=== PATIENT | female | born 1995 | race Caucasian/White ===

== ENCOUNTER 2018-07-29 17:14 | Emergency (ER) | payer OTHER ==
[~2018-07-29] VITALS: Ht 160 cm; Wt 61.7 kg
== END 2018-07-29 19:27 | disposition home or self-care (01) ==
LOC: ER 17:14
DX: J06.9 Acute upper respiratory infection, unspecified (principal)

== ENCOUNTER 2020-03-26 10:48 | Inpatient (IN) | payer OTHER ==
[~2020-03-26] VITALS: Ht 162.6 cm; Wt 74.4 kg
[2020-03-26] MEDS ORDERED: PRENATAL CAPLE1 EAC1 PO (11:35)
[2020-03-26] MEDS ORDERED: ZOFRAN8 MG PO (11:46)
== END 2020-03-28 10:08 | disposition home or self-care (01) | DRG 833 ==
LOC: LDR 10:48 → OB/GYN 03-27 08:49
PROVIDERS: ADMIT Obstetrics & Gynecology; ATTEND Obstetrics & Gynecology
PROC: 4A1HXFZ Monitoring of Products of Conception, Cardiac Rhythm, External Approach (ICD-10-PCS; principal; 2020-03-26)
PROC: BY4CZZZ Ultrasonography of Second Trimester, Single Fetus (ICD-10-PCS; 2020-03-26)
DX: O47.02 False labor before 37 completed weeks of gestation, second trimester (principal); O21.0 Mild hyperemesis gravidarum; Z3A.27 27 weeks gestation of pregnancy; Z20.828 Contact with and (suspected) exposure to other viral communicable diseases

== ENCOUNTER 2020-04-06 10:47 | Outpatient (CLI) | payer OTHER ==
[~2020-04-06 10:47] MED LIST: PRENATAL CAPLE1 EAC1 PO; ZOFRAN8 MG PO
== END 2020-04-06 11:35 | disposition home or self-care (01) ==
LOC: NST 10:47
PROVIDERS: ATTEND Obstetrics & Gynecology Maternal & Fetal Medicine
DX: Z34.83 Encounter for supervision of other normal pregnancy, third trimester (principal)

== ENCOUNTER 2020-04-21 13:00 | Outpatient (CLI) | payer OTHER | END 2020-04-21 13:41 | disposition home or self-care (01) | LOC: NST 13:00 | PROVIDERS: ATTEND Obstetrics & Gynecology | DX: Z34.83 Encounter for supervision of other normal pregnancy, third trimester (principal) ==

== ENCOUNTER 2020-05-26 11:49 | Outpatient (CLI) | payer OTHER | END 2020-05-26 12:10 | disposition home or self-care (01) | LOC: NST 11:49 | PROVIDERS: ATTEND Obstetrics & Gynecology | DX: Z34.83 Encounter for supervision of other normal pregnancy, third trimester (principal) ==

== ENCOUNTER 2020-06-02 15:00 | Inpatient (IN) | payer OTHER ==
[~2020-06-02] VITALS: Ht 157.5 cm; Wt 83.0 kg
[2020-06-14] MEDS ORDERED: VALACYCLOVIR1000 MG PO (10:40)
== END 2020-06-17 12:32 | disposition home or self-care (01) | DRG 788 ==
LOC: LDR 06-14 05:09 → O/R 06-14 05:09 → OB/GYN 06-14 05:09 → O/R 06-14 18:02 → OB/GYN 06-14 22:26
PROVIDERS: ADMIT Obstetrics & Gynecology; ATTEND Obstetrics & Gynecology
PROC: 10907ZC Drainage of Amniotic Fluid, Therapeutic from Products of Conception, Via Natural or Artificial Opening (ICD-10-PCS; 2020-06-14)
PROC: 3E033VJ Introduction of Other Hormone into Peripheral Vein, Percutaneous Approach (ICD-10-PCS; 2020-06-14)
PROC: 4A1HXFZ Monitoring of Products of Conception, Cardiac Rhythm, External Approach (ICD-10-PCS; 2020-06-14)
PROC: 10D00Z1 Extraction of Products of Conception, Low, Open Approach (ICD-10-PCS; principal; 2020-06-14 18:45)
DX: O62.1 Secondary uterine inertia (principal); O99.824 Streptococcus B carrier state complicating childbirth; O26.893 Other specified pregnancy related conditions, third trimester; Z67.41 Type O blood, Rh negative; Z3A.39 39 weeks gestation of pregnancy; Z37.0 Single live birth; Z20.822 Contact with and (suspected) exposure to COVID-19

== ENCOUNTER 2020-06-13 13:49 | Outpatient (CLI) | payer OTHER ==
[2020-06-14] MEDS ORDERED: VALACYCLOVIR1000 MG PO (10:40)
== END 2020-06-13 14:53 | disposition home or self-care (01) ==
LOC: NST 13:49
PROVIDERS: ATTEND Obstetrics & Gynecology
DX: Z34.03 Encounter for supervision of normal first pregnancy, third trimester (principal)

== ENCOUNTER 2021-09-13 10:58 | Emergency (ER) | payer OTHER ==
[~2021-09-13] VITALS: Ht 162.6 cm; Wt 64.9 kg
[~2021-09-13 10:58] MED LIST changes: +VALACYCLOVIR1000 MG PO
== END 2021-09-13 16:01 | disposition home or self-care (01) ==
LOC: ER 10:58
DX: R53.81 Other malaise (principal); Z91.013 Allergy to seafood; Z20.822 Contact with and (suspected) exposure to COVID-19